=== PATIENT | female | born 1950 | race Caucasian/White ===

== ENCOUNTER → 2016-07-09 | Outpatient (CLI) | payer MEDICARE, OTHER ==
--- NOTE | 2016-07-10 09:44 | MM ---
Reason for exam: screening (asymptomatic). Last mammogram was performed 1 year ago. History: Patient is postmenopausal and is nulliparous. Family history of breast cancer in mother at age 38. Benign left mammotome panel of the left breast, July 09, 2011. Reductions of both breasts, 1986. Took estrogen for 10 years 1 month. Physical Findings: A clinical breast exam by your physician is recommended on an annual basis and results should be correlated with mammographic findings. MG Screening Mammo w CAD Bilateral CC and MLO view(s) were taken. Prior study comparison: July 06, 2015, bilateral MG screening mammo w CAD. June 20, 2014, bilateral MG screening mammo w CAD. There are scattered fibroglandular densities. Previous mammotome biopsy in the left breast. Focal asymmetry in the right breast is stable since 2009. No significant changes when compared with prior studies. ASSESSMENT: Benign, BI-RAD 2 RECOMMENDATION: Routine screening mammogram of both breasts in 1 year.
== END | disposition home or self-care (01) ==
LOC: RADMAMWWP 10:31
PROVIDERS: ATTEND Family Medicine
DX: Z12.31 Encounter for screening mammogram for malignant neoplasm of breast (principal)

== ENCOUNTER → 2016-07-09 | Outpatient (CLI) | payer MEDICARE, OTHER | END | disposition home or self-care (01) | LOC: LABWHC1 10:22 | PROVIDERS: ATTEND Internal Medicine Endocrinology, Diabetes & Metabolism | DX: E03.9 Hypothyroidism, unspecified (principal); E55.9 Vitamin D deficiency, unspecified | CPT/HCPCS: 36415; 84439; 84443 ==

== ENCOUNTER → 2018-10-28 | Outpatient (CLI) | payer MEDICARE ==
--- NOTE | 2018-10-28 10:50 | USB ---
Reason for exam: additional evaluation requested from prior study. History: Patient is postmenopausal and is nulliparous. Family history of breast cancer in mother at age 38. Benign left mammotome panel of the left breast, July 09, 2011. Reductions of both breasts, 1986. Took estrogen for 10 years 1 month. Physical Findings: Nurse did not find any significant physical abnormalities on exam. US Breast Limited RT Prior study comparison: August 18, 2018, mammogram, performed at [facility]. Right limited breast ultrasound including focal area of concern, retroareolar and axilla demonstrates a 0.7 x 0.8 x 0.5cm hypoechoic lesion at 1 o'clock. This corresponds to the mammographic mass however this appears nearly identical to multiple exams dating back to 2006. In a patient with prior reduction this is most compatible with fat necrosis. These results were verbally communicated with the patient and result sheet given to the patient on 10/28/18. ASSESSMENT: Benign, BI-RAD 2 RECOMMENDATION: Routine screening mammogram of both breasts in 1 year.
== END ==
LOC: RADMAMWWP 09:28
PROVIDERS: ATTEND Physician Assistant
DX: R92.2 Inconclusive mammogram (principal)

== ENCOUNTER → 2019-05-07 | Day surgery (SDC) | payer MEDICARE, OTHER ==
[2019-05-05 17:02] VITALS: BMI 28.3
[~2019-05-07] MED LIST: LACTATED RINGERS 1,000 ML IV SCH; LIDOCAINE 1% 20 ML VIAL (10MG/ML) FOR IV START INTRADERMA PRN; LIDOCAINE 1% INJ 10MG/ML (20 ML MDV) ONE; MIDAZOLAM 2 MG/2 ML VIAL IV ONE; ONDANSETRON 4 MG/2 ML VIAL IVP ONE; PROPOFOL 10 MG/ML 20 ML VIAL IV ONE
[2019-05-07 11:41] VITALS: RESP 16; TEMP 96.9
[2019-05-07 11:53] LABS: Glucose,Whole Blood 87 mg/dL (75-99)
--- NOTE | 2019-05-07 13:10 | P.PCN ---
Date of Procedure: 05/07/19 Procedure(s) Performed: BRIEF HISTORY: Patient is a 68-year-old pleasant white female scheduled for an elective colonoscopy as a part of screening for colorectal neoplasia. Her last colonoscopy was 10 years ago. PROCEDURE PERFORMED: Colonoscopy. PREOPERATIVE DIAGNOSIS: Screening for colon cancer. IV sedation per Anesthesia. PROCEDURE: After informed consent was obtained, the patient, was brought into the endoscopy unit. IV sedation was administered by Anesthesia under continuous monitoring. Digital rectal examination was normal. Initially the Olympus CF-160 flexible video colonoscope was then inserted in the rectum, gradually advanced into the cecum without any difficulty. Careful examination was performed as the scope was gradually being withdrawn. Ileocecal valve and the appendiceal orifice were visualized and appeared normal. Prep was excellent. Mucosa of the cecum, ascending colon, transverse colon, descending colon, sigmoid colon, and rectum appeared normal. Retroflexion was performed in the rectum and no lesions were seen. The patient tolerated the procedure well. IMPRESSION: Normal-appearing colon from rectum to cecum with no evidence of colorectal neoplasia. RECOMMENDATIONS: Findings of this examination were discussed with the patient as well as a family. She was advised to have a repeat screening colonoscopy in 10 years
[2019-05-07 13:29] VITALS: BP 143/86; PULSE 67
== END ==
LOC: ORWHC2ENDO 10:47
PROVIDERS: ATTEND Internal Medicine Gastroenterology
DX: Z12.11 Encounter for screening for malignant neoplasm of colon (principal); E07.0 Hypersecretion of calcitonin; M19.90 Unspecified osteoarthritis, unspecified site; F41.9 Anxiety disorder, unspecified; F32.9 Major depressive disorder, single episode, unspecified; Z90.710 Acquired absence of both cervix and uterus; Z79.890 Hormone replacement therapy; Z79.899 Other long term (current) drug therapy
CPT/HCPCS: J2250; J2405; J2001; J2704; G0121

== ENCOUNTER → 2019-12-29 | Outpatient (CLI) | payer OTHER ==
--- NOTE | 2019-12-30 09:19 | MM ---
Reason for exam: screening (asymptomatic). Last mammogram was performed 1 year and 4 months ago. History: Patient is postmenopausal and is nulliparous. Family history of breast cancer in mother at age 38. Benign left mammotome panel of the left breast, July 09, 2011. Reductions of both breasts, 1986. Took estrogen for 10 years 1 month. Physical Findings: A clinical breast exam by your physician is recommended on an annual basis and results should be correlated with mammographic findings. MG Screening Mammo w CAD Bilateral CC and MLO view(s) were taken. Prior study comparison: August 18, 2018, mammogram, performed at [facility]. July 17, 2017, bilateral MG screening mammo w CAD. July 09, 2016, bilateral MG screening mammo w CAD. There are scattered fibroglandular densities. No significant changes when compared with prior studies. ASSESSMENT: Benign, BI-RAD 2 RECOMMENDATION: Routine screening mammogram of both breasts in 1 year.
== END | disposition home or self-care (01) ==
LOC: RADMAMWWP 10:55
DX: Z12.31 Encounter for screening mammogram for malignant neoplasm of breast (principal)
CPT/HCPCS: 77067

== ENCOUNTER → 2021-01-25 | Outpatient (CLI) | payer OTHER ==
--- NOTE | 2021-01-29 10:03 | MM ---
Reason for exam: screening (asymptomatic). Last mammogram was performed 1 year and 1 month ago. History: Patient is postmenopausal and is nulliparous. Family history of breast cancer in mother at age 38. Benign left mammotome panel of the left breast, July 09, 2011. Reductions of both breasts, 1986. Took estrogen for 10 years 1 month. Physical Findings: A clinical breast exam by your physician is recommended on an annual basis and results should be correlated with mammographic findings. MG Screening Mammo w CAD Bilateral CC and MLO view(s) were taken. Prior study comparison: December 29, 2019, bilateral MG screening mammo w CAD. August 18, 2018, mammogram, performed at [facility]. There are scattered fibroglandular densities. There is chronic nodularity in the left breast. Stable post surgical changes right 12 o'clock middle position. ASSESSMENT: Benign, BI-RAD 2 RECOMMENDATION: Routine screening mammogram of both breasts in 1 year.
== END | disposition home or self-care (01) ==
LOC: RADMAMWWP 09:36
DX: Z12.31 Encounter for screening mammogram for malignant neoplasm of breast (principal); Z80.3 Family history of malignant neoplasm of breast; Z78.0 Asymptomatic menopausal state
CPT/HCPCS: 77067

== ENCOUNTER 2022-05-02 10:31 | Emergency (ER) | payer OTHER, BC, MEDICARE ==
[2022-05-02 11:12] VITALS: BP 147/94; PULSE 90; RESP 16; TEMP 98.1
[2022-05-02] MEDS ORDERED: LORazepam 1 MG TAB PO STA (11:28)
--- NOTE | 2022-05-02 11:33 | ED ---
Anxiety HPI - General Chief Complaint: Anxiety Stated Complaint: Withdrawl, anxiety Time Seen by Provider: 05/02/22 11:26 Source: patient, RN notes reviewed Mode of arrival: ambulatory Limitations: no limitations - History of Present Illness Initial Comments: This is a 71-year-old female who presents to the emergency department for anxiety. Her psychiatrist, Dr. Johnson, recently, and she has been out of her Ativan for 2 days. She is currently going through withdrawals. She is waiting to see a new psychiatrist, however she does not have an appointment yet. She spoke with the new psychiatrist on the phone this morning, who instructed her to come to the emergency department for a refill. States that as soon as the psychiatrist gets paperwork from the emergency department, she'll be able to see the patient in her office. She is shaking and tearful in the examination room. Denies any fevers, chills, sore throat, cough, dyspnea, chest pain, palpitations, abdominal pain, nausea, vomiting, diarrhea, back pain, or headaches. MD Complaint: anxiety Onset/Timin -: days(s) Previous History of Same: Yes - Related Data Home Medications: Home Medications Medication Instructions Recorded Confirmed DULoxetine HCL [Cymbalta] 30 mg PO DAILY 09/06/14 05/05/19 LORazepam [Ativan] 1 mg PO BID 09/06/14 05/05/19 QUEtiapine [SEROquel] 100 mg PO HS 09/06/14 05/05/19 lamoTRIgine 150 mg PO BID 09/06/14 05/05/19 Cholecalciferol (Vitamin D3) 2,000 unit PO DAILY 05/05/19 05/05/19 [Vitamin D3] Levothyroxine Sodium [Synthroid] 75 mcg PO DAILY 05/05/19 05/05/19 Previous Rx's Medication Instructions Recorded LORazepam [Ativan] 1 mg PO BID 3 Days #6 tab 05/02/22 Allergies/Adverse Reactions: Allergies Allergy/AdvReac Type Severity Reaction Status Date / Time No Known Allergies Allergy Verified 05/02/22 11:06 Review of Systems ROS Statement: Those systems with pertinent positive or pertinent negative responses have been documented in the HPI. ROS Other: All systems not noted in ROS Statement are negative. Past Medical History Past Medical History: Osteoarthritis (OA), Thyroid Disorder History of Any Multi-Drug Resistant Organisms: None Reported Past Surgical History: Hysterectomy Additional Past Surgical History / Comment(s): breast reduction, throidectomy Past Anesthesia/Blood Transfusion Reactions: No Reported Reaction Past Psychological History: Anxiety, Depression Past Alcohol Use History: None Reported Past Drug Use History: None Reported - Past Family History Mother Family Medical History: Cancer General Exam Limitations: no limitations General appearance: alert, anxious, in distress Head exam: Present: atraumatic, normocephalic, normal inspection Respiratory exam: Present: normal lung sounds bilaterally. Absent: respiratory distress, wheezes, rales, rhonchi, stridor Cardiovascular Exam: Present: regular rate, normal rhythm, normal heart sounds. Absent: systolic murmur, diastolic murmur, rubs, gallop, clicks Neurological exam: Present: alert, oriented X3, CN II-XII intact Psychiatric exam: Present: anxious Skin exam: Present: warm, dry, intact, normal color. Absent: rash Course Vital Signs 05/02/22 11:09 Temperature 98.1 F Pulse Rate 90 Respiratory 16 Rate Blood Pressure 147/94 O2 Sat by Pulse 96 Oximetry Medical Decision Making - Medical Decision Making This is a 71-year-old female who presents to the emergency department for anxiety. She was given a dose of ativan in the emergency department and a 3 day refill was sent to her pharmacy. She was instructed to make an appointment with her new psychiatrist as soon as possible to avoid needing to come to the emergency department for refills. Return precautions reviewed in depth, the patient is instructed to return to the emergency department with any new, worsening, or concerning symptoms. Patient verbalized understanding. This case was discussed in detail with the attending ED physician. Presentation, findings, and treatment plan discussed in detail as well. Disposition Clinical Impression: Anxiety, Benzodiazepine withdrawal Disposition: HOME SELF-CARE Instructions (If sedation given, give patient instructions): Generalized Anxiety Disorder (ED) Additional Instructions: Return to the emergency department with any new, worsening, or concerning sympt oms. You were given an Ativan here and a 3 day prescription was sent to your pharmacy. Make an appointment with your new psychiatrist and follow up as soon as possible. Prescriptions: LORazepam [Ativan] 1 mg PO BID 3 Days #6 tab Is patient prescribed a controlled substance at d/c from ED?: Yes When asked, does pt state using other controlled substances?: No If prescribed controlled substance>3 days was MAPS reviewed?: Prescribed <3 Days Referrals: [facility],Clinic [Primary Care Provider] - 1-2 days
== END 2022-05-02 11:55 | disposition home or self-care (01) ==
LOC: EC 10:31
DX: F41.9 Anxiety disorder, unspecified (principal); F13.239 Sedative, hypnotic or anxiolytic dependence with withdrawal, unspecified; F32.A Depression, unspecified; M19.90 Unspecified osteoarthritis, unspecified site; E07.9 Disorder of thyroid, unspecified
CPT/HCPCS: 99283

== ENCOUNTER 2022-05-13 11:23 | Emergency (ER) | payer OTHER, BC, MEDICARE ==
[2022-05-13 12:03] VITALS: TEMP 97.8
--- NOTE | 2022-05-13 13:40 | ED ---
General Adult HPI - General Chief complaint: Recheck/Abnormal Lab/Rx Stated complaint: medication withdrawal Time Seen by Provider: 05/13/22 13:13 Source: patient, RN notes reviewed Mode of arrival: ambulatory Limitations: no limitations - History of Present Illness Initial comments: This a 71-year-old female presents emergency department for medication refill. Patient states that her psychiatrist . Patient states she was recently here for 100 refill in which she states that she has been off for at least 9 days now. Patient states she ran out of her Seroquel and states that she is very anxious and not tolerating symptoms. Patient denies any suicidal or homicidal ideation. Patient fell complaint she has an appointment tomorrow with psychiatrist. - Related Data Home Medications Medication Instructions Recorded Confirmed DULoxetine HCL [Cymbalta] 30 mg PO DAILY 09/06/14 05/05/19 LORazepam [Ativan] 1 mg PO BID 09/06/14 05/05/19 lamoTRIgine 150 mg PO BID 09/06/14 05/05/19 Cholecalciferol (Vitamin D3) 2,000 unit PO DAILY 05/05/19 05/05/19 [Vitamin D3] Levothyroxine Sodium [Synthroid] 75 mcg PO DAILY 05/05/19 05/05/19 Previous Rx's Medication Instructions Recorded LORazepam [Ativan] 1 mg PO BID 3 Days #6 tab 05/02/22 QUEtiapine [SEROquel] 100 mg PO HS #14 tablet 05/13/22 Allergies Allergy/AdvReac Type Severity Reaction Status Date / Time No Known Allergies Allergy Verified 05/02/22 11:06 Review of Systems ROS Statement: Those systems with pertinent positive or pertinent negative responses have been documented in the HPI. ROS Other: All systems not noted in ROS Statement are negative. Past Medical History Past Medical History: Osteoarthritis (OA), Thyroid Disorder History of Any Multi-Drug Resistant Organisms: None Reported Past Surgical History: Hysterectomy Additional Past Surgical History / Comment(s): breast reduction, throidectomy Past Anesthesia/Blood Transfusion Reactions: No Reported Reaction Past Psychological History: Anxiety, Bipolar, Depression Past Alcohol Use History: None Reported Past Drug Use History: None Reported - Past Family History Mother Family Medical History: Cancer General Exam Limitations: no limitations General appearance: alert, in no apparent distress Head exam: Present: atraumatic, normocephalic, normal inspection Eye exam: Present: normal appearance, PERRL, EOMI. Absent: scleral icterus, conjunctival injection, periorbital swelling ENT exam: Present: normal exam, normal oropharynx, mucous membranes moist Neck exam: Present: normal inspection, full ROM. Absent: tenderness, meningismus, lymphadenopathy Respiratory exam: Present: normal lung sounds bilaterally. Absent: respiratory distress, wheezes, rales, rhonchi, stridor Cardiovascular Exam: Present: regular rate, normal rhythm, normal heart sounds. Absent: systolic murmur, diastolic murmur, rubs, gallop, clicks GI/Abdominal exam: Present: soft, normal bowel sounds. Absent: distended, tenderness, guarding, rebound, rigid Neurological exam: Present: alert Skin exam: Present: warm, dry, intact, normal color. Absent: rash Course Vital Signs 05/13/22 05/13/22 11:58 14:19 Temperature 97.8 F Pulse Rate 86 111 H Respiratory 16 22 Rate Blood Pressure 187/94 178/90 O2 Sat by Pulse 95 100 Oximetry Medical Decision Making - Medical Decision Making Patient was given medication refill, patient has appointment with psychiatrist tomorrow. Disposition Clinical Impression: Anxiety, Encounter for medication refill Disposition: HOME SELF-CARE Condition: Stable Additional Instructions: Please return to the Emergency Department if symptoms worsen or any other concerns. Prescriptions: QUEtiapine [SEROquel] 100 mg PO HS #14 tablet Is patient prescribed a controlled substance at d/c from ED?: No Referrals: [facility],Clinic [Primary Care Provider] - 1-2 days Time of Disposition: 13:20
[2022-05-13 14:20] VITALS: BP 178/90; PULSE 111; RESP 22
== END 2022-05-13 14:20 | disposition home or self-care (01) ==
LOC: EC 11:23
DX: Z76.0 Encounter for issue of repeat prescription (principal); F31.9 Bipolar disorder, unspecified; F41.9 Anxiety disorder, unspecified; E07.9 Disorder of thyroid, unspecified; M19.90 Unspecified osteoarthritis, unspecified site; Z79.890 Hormone replacement therapy; Z79.899 Other long term (current) drug therapy
CPT/HCPCS: 99283

== ENCOUNTER 2023-07-03 08:00 | Emergency (ER) | payer MEDICARE ==
[2023-07-03] MEDS ORDERED: LIDOCAINE 4% PATCH TOPICAL STA (08:20)
[2023-07-03] MEDS ORDERED: IBUPROFEN 600 MG TAB PO STA (08:20)
--- NOTE | 2023-07-03 08:30 | ED ---
General Adult HPI - General Chief complaint: Fall Stated complaint: Fall Time Seen by Provider: 07/03/23 08:09 Source: patient, RN notes reviewed, old records reviewed Mode of arrival: ambulatory Limitations: no limitations - History of Present Illness Initial comments: Patient is a 72-year-old female with past medical history remarkable for sciatica who presents emergency Department complaining of a fall. Fall occurred 2 days ago from 1 step above ground-level. States she is getting cans of the pantry off a stepladder. Fell backwards and landed on her bottom. Since that time has been having pain in her buttocks. No midline pain, seems to be more localized over the left hip. Has no other acute complaints at this time. Denies any weakness, numbness. Has been ambulatory. Presents for further evaluation at this time. Patient does take gabapentin at home.Is not on blood thinners. Did not hit her head. Did not lose consciousness. - Related Data Home Medications Medication Instructions Recorded Confirmed DULoxetine HCL [Cymbalta] 30 mg PO DAILY 09/06/14 05/05/19 LORazepam [Ativan] 1 mg PO BID 09/06/14 05/05/19 lamoTRIgine 150 mg PO BID 09/06/14 05/05/19 Cholecalciferol (Vitamin D3) 2,000 unit PO DAILY 05/05/19 05/05/19 [Vitamin D3] Levothyroxine Sodium [Synthroid] 75 mcg PO DAILY 05/05/19 05/05/19 Previous Rx's Medication Instructions Recorded LORazepam [Ativan] 1 mg PO BID 3 Days #6 tab 05/02/22 QUEtiapine [SEROquel] 100 mg PO HS #14 tablet 05/13/22 Lidocaine 5% Patch [Lidoderm 5% 1 patch TOPICAL DAILY PRN 14 Days 07/03/23 Patch] #14 patch Allergies Allergy/AdvReac Type Severity Reaction Status Date / Time No Known Allergies Allergy Verified 07/03/23 08:10 Review of Systems ROS Statement: Those systems with pertinent positive or pertinent negative responses have been documented in the HPI. Review of Systems: CONST: Denies fever EYES: Denies blurry vision ENT: Denies nasal congestion C/V: Denies Chest pain RESP: Denies shortness of breath GI: Denies abdominal pain : Denies dysuria SKIN: Denies rash. MSK: Endorses left buttock pain NEURO: Denies headache ROS Other: All systems not noted in ROS Statement are negative. Past Medical History Past Medical History: Osteoarthritis (OA), Thyroid Disorder History of Any Multi-Drug Resistant Organisms: None Reported Past Surgical History: Hysterectomy Additional Past Surgical History / Comment(s): breast reduction, throidectomy Past Anesthesia/Blood Transfusion Reactions: No Reported Reaction Past Psychological History: Anxiety, Bipolar, Depression Smoking Status: Never smoker Past Alcohol Use History: None Reported Past Drug Use History: None Reported - Past Family History Mother Family Medical History: Cancer General Exam - General Exam Comments Initial Comments: General: Appears in no acute distress. HEAD: Normal with no signs of head trauma. EYES: EOMI. ENT: Hearing grossly intact. RESPIRATORY: No respiratory distress. C/V: Regular rate and rhythm. ABD: Abdomen is nondistended. EXT: Pelvis is stable.. Tenderness to palpation in the left lower paraspinal muscles. No significant pain. Able to ambulate without difficulty. Neurovascular intact throughout. SKIN: No rashes or lesions observed on exposed skin. NEURO: Alert and oriented. Limitations: no limitations Course Vital Signs 07/03/23 08:07 Temperature 98 F Pulse Rate 92 Respiratory 18 Rate Blood Pressure 156/98 O2 Sat by Pulse 98 Oximetry Medical Decision Making - Medical Decision Making Was pt. sent in by a medical professional or institution (ERVIN Gil, BRUSHER TENDER, urgent care, hospital, or halfway...) When possible be specific @ -No Did you speak to anyone other than the patient for history (EMS, parent, family, police, friend...)? What history was obtained from this source @ -No Did you review nursing and triage notes (agree or disagree)? Why? @ -I reviewed and agree with nursing and triage notes Were old charts reviewed (outside hosp., previous admission, EMS record, old EKG, old radiological studies, urgent care reports/EKG's, halfway records)? Report findings @ -No old charts were reviewed Differential Diagnosis (chest pain, altered mental status, abdominal pain women, abdominal pain men, vaginal bleeding, weakness, fever, dyspnea, syncope, headache, dizziness, GI bleed, back pain, seizure, CVA, palpatations, mental health, musculoskeletal)? @ -Differential Musculoskeletal Muscular strain, contusion, ligament sprain, fracture, arthritis, septic arthritis, bursitis, cellulitis, muscle spasm, nerve compression, DVT, arterial occlusion, herpes zoster, electrolyte abnormality, tumor.... This is not meant to be in all inclusive list EKG interpreted by me (3pts min.). @ -None done X-rays interpreted by me (1pt min.). @ -Pelvis x-ray reveals no obvious acute injury. CT interpreted by me (1pt min.). @ -None done U/S interpreted by me (1pt. min.). @ -None done What testing was considered but not performed or refused? (CT, X-rays, U/S, labs)? Why? @ -None What meds were considered but not given or refused? Why? @ -None Did you discuss the management of the patient with other professionals (professionals i.e. , PA, BRUSHER TENDER, lab, RT, psych nurse, web content & social media manager, wood barrel reconditioner, teacher, safety and security officer, wrapper caser)? Give summary @ -No Was smoking cessation discussed for >3mins.? @ -No Was critical care preformed (if so, how long)? @ -No Were there social determinants of health that impacted care today? How? (Homelessness, low income, unemployed, alcoholism, drug addiction, transportation, low edu. Level, literacy, decrease access to med. care, shelter, rehab)? @ -No Was there de-escalation of care discussed even if they declined (Discuss DNR or withdrawal of care, Hospice)? DNR status @ -No What co-morbidities impacted this encounter? (DM, HTN, Smoking, COPD, CAD, Cancer, CVA, ARF, Chemo, Hep., AIDS, mental health diagnosis, sleep apnea, morbid obesity)? @ -None Was patient admitted / discharged? Hospital course, mention meds given and route, prescriptions, significant lab abnormalities, going to OR and other pertinent info. @ -Based on the patient's presentation and physical exam, presents complaining of foot appears to be muscle strains and sprains. Had a mechanical fall 2 days ago. No concern for head injury at this time. We will obtain pelvic x-ray. Patient will receive Motrin as well as lidocaine patch. Patient agreement with this plan. Vital signs within except for limits. Neurovascular intact throughout. Exam unremarkable. She is ambulatory without issue. X-ray negative for any obvious traumatic injury. After the patient. Diagnosis is likely a muscle strain. She'll be discharged home at this time. She continues lidocaine patches at home as well as [id number] medications for analgesia. She was in agreement this plan. I will provide the patient with a prescription for lidocaine patch. I instructed the patient to follow up with their PCP in the next 1-3 days. I explained that the patient should return to the emergency department if they experience any worsening symptoms. Strict return precautions were discussed with the patient. The patient expressed understanding of these instructions. I answered all questions that the patient had. The patient was discharged home in good condition with their prescriptions and follow up information. Undiagnosed new problem with uncertain prognosis? @ -No Drug Therapy requiring intensive monitoring for toxicity (Heparin, Nitro, Insulin, Cardizem)? @ -No Were any procedures done? @ -No Diagnosis/symptom? @ -Fall, muscle strain Acute, or Chronic, or Acute on Chronic? @ -Acute Uncomplicated (without systemic symptoms) or Complicated (systemic symptoms)? @ -Uncomplicated Side effects of treatment? @ -No Exacerbation, Progression, or Severe Exacerbation? @ -No Poses a threat to life or bodily function? How? (Chest pain, USA, MT, pneumonia, PE, COPD, DKA, ARF, appy, cholecystitis, CVA, Diverticulitis, Homicidal, Suicidal, threat to staff... and all critical care pts) @ -No Disposition Clinical Impression: Fall, Muscle strain Disposition: HOME SELF-CARE Condition: Good Instructions (If sedation given, give patient instructions): Fall Prevention for Older Adults (ED), Muscle Strain (ED) Prescriptions: Lidocaine 5% Patch [Lidoderm 5% Patch] 1 patch TOPICAL DAILY PRN 14 Days #14 patch PRN Reason: Pain Is patient prescribed a controlled substance at d/c from ED?: No Referrals: [facility],Clinic [Primary Care Provider] - 1-2 days Time of Disposition: 09:22
[2023-07-03 08:54] VITALS: RESP 18
--- NOTE | 2023-07-03 09:09 | XR ---
EXAMINATION TYPE: XR pelvis AP view DATE OF EXAM: 07/03/2023 COMPARISON: NONE HISTORY: Pain The osseous structures are intact and the joint spaces are preserved. No acute fracture is seen. Vi sualized bowel gas pattern is nonspecific. IMPRESSION: 1. No acute fracture.
[2023-07-03 10:06] VITALS: BP 140/89; PULSE 87; TEMP 98.1
== END 2023-07-03 09:45 | disposition home or self-care (01) ==
LOC: EC 08:00
DX: F31.9 Bipolar disorder, unspecified (principal); S39.012A Strain of muscle, fascia and tendon of lower back, initial encounter; F41.9 Anxiety disorder, unspecified; E07.9 Disorder of thyroid, unspecified; Z79.890 Hormone replacement therapy; Z79.899 Other long term (current) drug therapy; W11.XXXA Fall on and from ladder, initial encounter
CPT/HCPCS: 72170; 99283

== ENCOUNTER 2024-02-09 06:12 | Emergency (ER) | payer MEDICARE ==
[2024-02-09] MEDS: SODIUM CHLORIDE 0.9% 1,000 ML IV STA (07:02)
[2024-02-09] MEDS: ONDANSETRON 4 MG/2 ML VIAL IVP STA (07:02)
[2024-02-09 07:35] LABS: Basophils % (A) 1 %; Eosinophils # (A) 0.2 k/uL (0-0.7); Eosinophils % (A) 3 %; HCT 44.9 % (34.0-46.0); HGB 14.6 gm/dL (11.4-16.0); Lymphocytes # (A) 1.5 k/uL (1.0-4.8); Lymphocytes % (A) 26 %; MCHC 32.5 g/dL (31.0-37.0); MCV 89.2 fL (80.0-100.0); Mean Platelet Volume 6.9; Monocytes # (A) 0.4 k/uL (0-1.0); Monocytes % (A) 7 %; Neutrophils # (A) 3.6 k/uL (1.3-7.7); Neutrophils % (A) 61 %; Platelet Count 291 k/uL (150-450); RBC 5.03 m/uL (3.80-5.40); RDW 13.8 % (11.5-15.5); WBC 5.9 k/uL (3.8-10.6)
--- NOTE | 2024-02-09 07:42 | ED ---
Nausea/Vomiting/Diarrhea HPI - General Chief complaint: Nausea/Vomiting/Diarrhea Stated complaint: Sweats,chills Time Seen by Provider: 02/09/24 06:48 Source: patient, RN notes reviewed Mode of arrival: ambulatory Limitations: no limitations - History of Present Illness Initial comments: 73-year-old female presents emergency department complaint of abdominal pain, nausea vomiting. Patient states she has not felt for the last 2 weeks. Patient states that she feels like her gut is riding. Patient states she is mild dysuria and urinary frequency no melanotic stools. Denies any known fever but states she has had chills no chest pain no shortness of breath - Related Data Home Medications Medication Instructions Recorded Confirmed DULoxetine HCL [Cymbalta] 30 mg PO DAILY 09/06/14 05/05/19 LORazepam [Ativan] 1 mg PO BID 09/06/14 05/05/19 lamoTRIgine 150 mg PO BID 09/06/14 05/05/19 Cholecalciferol (Vitamin D3) 2,000 unit PO DAILY 05/05/19 05/05/19 [Vitamin D3] Levothyroxine Sodium [Synthroid] 75 mcg PO DAILY 05/05/19 05/05/19 Previous Rx's Medication Instructions Recorded LORazepam [Ativan] 1 mg PO BID 3 Days #6 tab 05/02/22 QUEtiapine [SEROquel] 100 mg PO HS #14 tablet 05/13/22 Lidocaine 5% Patch [Lidoderm 5% 1 patch TOPICAL DAILY PRN 14 Days 07/03/23 Patch] #14 patch Ondansetron Odt [Zofran Odt] 4 mg PO Q8HR PRN #10 tab 02/09/24 Allergies Allergy/AdvReac Type Severity Reaction Status Date / Time No Known Allergies Allergy Verified 02/09/24 06:15 Review of Systems ROS Statement: Those systems with pertinent positive or pertinent negative responses have been documented in the HPI. ROS Other: All systems not noted in ROS Statement are negative. Past Medical History Past Medical History: Osteoarthritis (OA), Thyroid Disorder History of Any Multi-Drug Resistant Organisms: None Reported Past Surgical History: Hysterectomy Additional Past Surgical History / Comment(s): breast reduction, throidectomy Past Anesthesia/Blood Transfusion Reactions: No Reported Reaction Past Psychological History: Anxiety, Bipolar, Depression Smoking Status: Never smoker Past Alcohol Use History: None Reported Past Drug Use History: None Reported - Past Family History Mother Family Medical History: Cancer General Exam Limitations: no limitations General appearance: alert, in no apparent distress Head exam: Present: atraumatic, normocephalic, normal inspection ENT exam: Present: normal exam, mucous membranes moist Neck exam: Present: normal inspection, full ROM. Absent: tenderness, meningismus, lymphadenopathy Respiratory exam: Present: normal lung sounds bilaterally. Absent: respiratory distress, wheezes, rales, rhonchi, stridor Cardiovascular Exam: Present: regular rate, normal rhythm, normal heart sounds. Absent: systolic murmur, diastolic murmur, rubs, gallop, clicks GI/Abdominal exam: Present: soft, tenderness, normal bowel sounds. Absent: distended, guarding, rebound, rigid Course Vital Signs 02/09/24 02/09/24 06:13 07:52 Temperature 97.6 F 98.0 F Pulse Rate 88 74 Respiratory 18 18 Rate Blood Pressure 144/83 159/99 O2 Sat by Pulse 96 96 Oximetry Medical Decision Making - Medical Decision Making Was pt. sent in by a medical professional or institution (, PA, CHENILLE MACHINE OPERATOR, urgent care, hospital, or [facility]...) When possible be specific @ -No Did you speak to anyone other than the patient for history (EMS, parent, family, police, friend...)? What history was obtained from this source @ -No Did you review nursing and triage notes (agree or disagree)? Why? @ -I reviewed and agree with nursing and triage notes Were old charts reviewed (outside hosp., previous admission, EMS record, old E KG, old radiological studies, urgent care reports/EKG's, [facility] records)? Report findings @ -No old charts were reviewed Differential Diagnosis (chest pain, altered mental status, abdominal pain women, abdominal pain men, vaginal bleeding, weakness, fever, dyspnea, syncope, headache, dizziness, GI bleed, back pain, seizure, CVA, palpatations, mental health, musculoskeletal)? @ -Differential Abdominal Pain Women: Appendicitis, Cholecystitis, diverticulosis, ischemic bowel, pancreatitis, h epatitis, UTI, gastroenteritis, AAA, incarcerated hernia, bowel obstruction, constipation, inflammatory bowel, hepatitis, peptic ulcer disease, splenic infarction, perforated viscus, vulvitis, ovarian torsion, PID, kidney stone, placenta abruption, this is not meant to be an all-inclusive list EKG interpreted by me (3pts min.). @ -None X-rays interpreted by me (1pt min.). @ -None done CT interpreted by me (1pt min.). @ -CT abdomen pelvis showed no acute intra-abdominal process no perforation U/S interpreted by me (1pt. min.). @ -None done What testing was considered but not performed or refused? (CT, X-rays, U/S, labs)? Why? @ -None What meds were considered but not given or refused? Why? @ -None Did you discuss the management of the patient with other professionals (professionals i.e. DrKevin, PA, CHENILLE MACHINE OPERATOR, lab, RT, psych nurse, social media analyst, veterinary science teacher, teacher, chief resource officer, sample case porter)? Give summary @ -No Was smoking cessation discussed for >3mins.? @ -No Was critical care preformed (if so, how long)? @ -No Were there social determinants of health that impacted care today? How? (Homelessness, low income, unemployed, alcoholism, drug addiction, transportation, low edu. Level, literacy, decrease access to med. care, correction, rehab)? @ -No Was there de-escalation of care discussed even if they declined (Discuss DNR or withdrawal of care, Hospice)? DNR status @ -No What co-morbidities impacted this encounter? (DM, HTN, Smoking, COPD, CAD, Cancer, CVA, ARF, Chemo, Hep., AIDS, mental health diagnosis, sleep apnea, morbid obesity)? @ -None Was patient admitted / discharged? Hospital course, mention meds given and route, prescriptions, significant lab abnormalities, going to OR and other pertinent info. @ -Discharge patient feels great improved after IV fluids and antiemetics. Patient discharged stable condition updated on CT and laboratory findings Undiagnosed new problem with uncertain prognosis? @ -No Drug Therapy requiring intensive monitoring for toxicity (Heparin, Nitro, In sulin, Cardizem)? @ -No Were any procedures done? @ -No Diagnosis/symptom? @ -Abdominal pain, diarrhea Acute, or Chronic, or Acute on Chronic? @ -Acute Uncomplicated (without systemic symptoms) or Complicated (systemic symptoms)? @ -Uncomplicated Side effects of treatment? @ -No Exacerbation, Progression, or Severe Exacerbation? @ -No Poses a threat to life or bodily function? How? (Chest pain, [place], [place], pneumonia, PE, COPD, DKA, ARF, appy, cholecystitis, CVA, Diverticulitis, Homicidal, Suicidal, threat to staff... and all critical care pts) @ -No - Lab Data Result diagrams: 02/09/24 06:54 02/09/24 06:54 Lab Results 02/09/24 02/09/24 02/09/24 Range/Units 06:54 06:54 06:54 WBC 5.9 (3.8-10.6) k/uL RBC 5.03 (3.80-5.40) m/uL Hgb 14.6 (11.4-16.0) gm/dL Hct 44.9 (34.0-46.0) % MCV 89.2 (80.0-100.0) fL MCH 29.0 (25.0-35.0) pg MCHC 32.5 (31.0-37.0) g/dL RDW 13.8 (11.5-15.5) % Plt Count 291 (150-450) k/uL MPV 6.9 Neutrophils % 61 % Lymphocytes % 26 % Monocytes % 7 % Eosinophils % 3 % Basophils % 1 % Neutrophils # 3.6 (1.3-7.7) k/uL Lymphocytes # 1.5 (1.0-4.8) k/uL Monocytes # 0.4 (0-1.0) k/uL Eosinophils # 0.2 (0-0.7) k/uL Basophils # 0.0 (0-0.2) k/uL Sodium 139 (137-145) mmol/L Potassium 3.3 L (3.5-5.1) mmol/L Chloride 101 (98-107) mmol/L Carbon Dioxide 29 (22-30) mmol/L Anion Gap 9 mmol/L BUN 13 (7-17) mg/dL Creatinine 0.84 (0.52-1.04) mg/dL Est GFR (CKD-EPI)AfAm 79 (>60 ml/min/1.73 sqM) Est GFR (CKD-EPI)NonAf 69 (>60 ml/min/1.73 sqM) Glucose 104 H (74-99) mg/dL Plasma Lactic Acid Tanner 1.2 (0.7-2.0) mmol/L Calcium 9.3 (8.4-10.2) mg/dL Total Bilirubin 0.9 (0.2-1.3) mg/dL AST 31 (14-36) U/L ALT 32 (4-34) U/L Alkaline Phosphatase 44 (38-126) U/L Total Protein 6.7 (6.3-8.2) g/dL Albumin 4.3 (3.5-5.0) g/dL Amylase 44 (30-110) U/L Lipase 95 (23-300) U/L Urine Color Urine Appearance (Clear) Urine pH (5.0-8.0) Ur Specific [place] (1.001-1.035) Urine Protein (Negative) Urine Glucose (UA) (Negative) Urine Ketones (Negative) Urine Blood (Negative) Urine Nitrite (Negative) Urine Bilirubin (Negative) Urine Urobilinogen (<2.0) mg/dL Ur Leukocyte Esterase (Negative) Urine RBC (0-5) /hpf Urine WBC (0-5) /hpf Ur Squamous Epith Cells (0-4) /hpf // Range/Units 06:59 WBC (3.8-10.6) k/uL RBC (3.80-5.40) m/uL Hgb (11.4-16.0) gm/dL Hct (34.0-46.0) % MCV (80.0-100.0) fL MCH (25.0-35.0) pg MCHC (31.0-37.0) g/dL RDW (11.5-15.5) % Plt Count (150-450) k/uL MPV Neutrophils % % Lymphocytes % % Monocytes % % Eosinophils % % Basophils % % Neutrophils # (1.3-7.7) k/uL Lymphocytes # (1.0-4.8) k/uL Monocytes # (0-1.0) k/uL Eosinophils # (0-0.7) k/uL Basophils # (0-0.2) k/uL Sodium (137-145) mmol/L Potassium (3.5-5.1) mmol/L Chloride (98-107) mmol/L Carbon Dioxide (22-30) mmol/L Anion Gap mmol/L BUN (7-17) mg/dL Creatinine (0.52-1.04) mg/dL Est GFR (CKD-EPI)AfAm (>60 ml/min/1.73 sqM) Est GFR (CKD-EPI)NonAf (>60 ml/min/1.73 sqM) Glucose (74-99) mg/dL Plasma Lactic Acid Tanner (0.7-2.0) mmol/L Calcium (8.4-10.2) mg/dL Total Bilirubin (0.2-1.3) mg/dL AST (14-36) U/L ALT (4-34) U/L Alkaline Phosphatase (38-126) U/L Total Protein (6.3-8.2) g/dL Albumin (3.5-5.0) g/dL Amylase (30-110) U/L Lipase (23-300) U/L Urine Color Colorless Urine Appearance Cloudy H (Clear) Urine pH 6.0 (5.0-8.0) Ur Specific [place] 1.005 (1.001-1.035) Urine Protein Negative (Negative) Urine Glucose (UA) Negative (Negative) Urine Ketones Negative (Negative) Urine Blood Negative (Negative) Urine Nitrite Negative (Negative) Urine Bilirubin Negative (Negative) Urine Urobilinogen <2.0 (<2.0) mg/dL Ur Leukocyte Esterase Negative (Negative) Urine RBC 1 (0-5) /hpf Urine WBC 2 (0-5) /hpf Ur Squamous Epith Cells 1 (0-4) /hpf Disposition Clinical Impression: Abdominal pain, Diarrhea Disposition: HOME SELF-CARE Condition: Stable Instructions (If sedation given, give patient instructions): Acute Diarrhea (ED), Abdominal Pain (ED) Additional Instructions: Please return to the Emergency Department if symptoms worsen or any other concerns. Prescriptions: Ondansetron Odt [Zofran Odt] 4 mg PO Q8HR PRN #10 tab PRN Reason: Nausea Is patient prescribed a controlled substance at d/c from ED?: No Referrals: [facility],Clinic [Primary Care Provider] - 1-2 days Time of Disposition: 09:28
[2024-02-09 07:53] VITALS: TEMP 98
[2024-02-09 07:58] LABS: Appearance,Urine Cloudy (Clear); Bilirubin,Urine Negative (Negative); Blood,Urine Negative (Negative); Color,Urine Colorless; Glucose,Urine (UA) Negative (Negative); Ketones,Urine Negative (Negative); Leukocyte Esterase,Urine Negative (Negative); Nitrite,Urine Negative (Negative); Protein,Urine Negative (Negative); RBC,Urine 1 /hpf (0-5); Specific Gravity,Urine 1.005 (1.001-1.035); Squamous Epithelial Cell,Urine 1 /hpf (0-4); Urobilinogen,Urine <2.0 mg/dL (<2.0); WBC,Urine 2 /hpf (0-5)
[2024-02-09 08:09] LABS: ALT 32 U/L (4-34); AST 31 U/L (14-36); African American GFR (CKD) 79 (>60 ml/min/1.73 sqM); Albumin 4.3 g/dL (3.5-5.0); Alkaline Phosphatase 44 U/L (38-126); Amylase 44 U/L (30-110); Anion Gap 9 mmol/L; Blood Urea Nitrogen 13 mg/dL (7-17); Calcium 9.3 mg/dL (8.4-10.2); Carbon Dioxide 29 mmol/L (22-30); Chloride 101 mmol/L (98-107); Glucose 104 mg/dL (74-99); Lipase 95 U/L (23-300); Non-African American GFR(CKD) 69 (>60 ml/min/1.73 sqM); Potassium 3.3 mmol/L (3.5-5.1); Sodium 139 mmol/L (137-145); Total Bilirubin 0.9 mg/dL (0.2-1.3); Total Protein 6.7 g/dL (6.3-8.2)
--- NOTE | 2024-02-09 09:07 | CT ---
EXAMINATION TYPE: CT abdomen pelvis w con CT DLP: 1025.6 mGycm, Automated exposure control for dose reduction was used. DATE OF EXAM: 02/09/2024 9:01 AM COMPARISON: None. CLINICAL INDICATION: Female, 73 years old with history of pain; Abdominal pain, N/V/D, nausea x 2 wee ks. TECHNIQUE: Axial CT abdomen pelvis w con;Sagittal and coronal reformats were created on a separate w orkstation. Contrast used:100 mL of Isovue 300 with IV Contrast, (none if empty) Oral contrast used: without Oral Contrast (none if empty) FINDINGS: LOWER CHEST: Unremarkable ABDOMEN LIVER: Unremarkable GALLBLADDER AND BILE DUCTS: Unremarkable. PANCREAS: Unremarkable. SPLEEN: Unremarkable. ADRENAL GLANDS: Unremarkable. KIDNEYS AND URETERS: No evidence of hydronephrosis or renal calculus. The ureters are unremarkable. PELVIS BLADDER: Unremarkable REPRODUCTIVE: Unremarkable. ABDOMEN & PELVIS STOMACH AND BOWEL: No evidence for wall thickening of the gastric lumen. No evidence of bowel obstruc tion. The appendix is normal. PERITONEUM/RETROPERITONEUM: No evidence of pneumoperitoneum or free fluid. VASCULATURE: No evidence of aortic aneurysm. Tortuous aorta. MUSCULOSKELETAL: No acute osseous abnormalities LYMPH NODES: No gross evidence for lymphadenopathy. SOFT TISSUE/ABDOMINAL WALL: Unremarkable IMPRESSION: 1. No obvious acute abdominal process. Normal appearance of the stomach. Gaseous dilation of colon w ithout evidence of small bowel junction. 2. No evidence for obstructive uropathy or renal calculus. The appendix is normal.
[2024-02-09] MEDS: DIPHENOX-ATROP STARTER PACK 8 TAB BTL PO STA (09:36)
[2024-02-09 09:41] VITALS: BP 162/95; PULSE 78; RESP 16
== END 2024-02-09 09:40 | disposition home or self-care (01) ==
LOC: EC 06:12
DX: R11.2 Nausea with vomiting, unspecified (principal); R19.7 Diarrhea, unspecified
CPT/HCPCS: 36415; 80053; 82150; 83605; 83690; 85025; 81001; 74177; 99284; 96374; 96361; J2405; Q9967

== ENCOUNTER 2024-02-21 11:16 | Emergency (ER) | payer MEDICARE ==
[2024-02-21 11:19] VITALS: BP 184/101; PULSE 86; RESP 20; TEMP 97.5
--- NOTE | 2024-02-21 11:56 | ED ---
General Adult HPI - General Chief complaint: Nausea/Vomiting/Diarrhea Stated complaint: Diarrhea Time Seen by Provider: 02/21/24 11:30 Source: patient, RN notes reviewed Mode of arrival: ambulatory Limitations: no limitations - History of Present Illness Initial comments: 73 [id number] presenting with intermittent abdominal pain localized to left upper quadrant x 1 week, relieved only by having bowel movement. Reports self induced diarrhea with pedialyte to evacuate bowels, stools have been increasingly dark in color, liquid. Denies nausea and vomitting, fever, weight loss. States that she sent stool to [place], and they told her to come to the ER for antibiotics. - Related Data Home Medications Medication Instructions Recorded Confirmed DULoxetine HCL [Cymbalta] 30 mg PO DAILY 09/06/14 05/05/19 LORazepam [Ativan] 1 mg PO BID 09/06/14 05/05/19 lamoTRIgine 150 mg PO BID 09/06/14 05/05/19 Cholecalciferol (Vitamin D3) 2,000 unit PO DAILY 05/05/19 05/05/19 [Vitamin D3] Levothyroxine Sodium [Synthroid] 75 mcg PO DAILY 05/05/19 05/05/19 Previous Rx's Medication Instructions Recorded LORazepam [Ativan] 1 mg PO BID 3 Days #6 tab 05/02/22 QUEtiapine [SEROquel] 100 mg PO HS #14 tablet 05/13/22 Lidocaine 5% Patch [Lidoderm 5% 1 patch TOPICAL DAILY PRN 14 Days 07/03/23 Patch] #14 patch Ondansetron Odt [Zofran Odt] 4 mg PO Q8HR PRN #10 tab 02/09/24 Albendazole [Albenza] 400 mg PO BID #40 tablet 02/21/24 metroNIDAZOLE [Flagyl] 250 mg PO TID #21 tab 02/21/24 Allergies Allergy/AdvReac Type Severity Reaction Status Date / Time No Known Allergies Allergy Verified 02/21/24 11:19 Review of Systems ROS Statement: Those systems with pertinent positive or pertinent negative responses have been documented in the HPI. ROS Other: All systems not noted in ROS Statement are negative. Past Medical History Past Medical History: Osteoarthritis (OA), Thyroid Disorder History of Any Multi-Drug Resistant Organisms: None Reported Past Surgical History: Hysterectomy Additional Past Surgical History / Comment(s): breast reduction, throidectomy Past Anesthesia/Blood Transfusion Reactions: No Reported Reaction Past Psychological History: Anxiety, Bipolar, Depression Smoking Status: Never smoker Past Alcohol Use History: None Reported Past Drug Use History: None Reported - Past Family History Mother Family Medical History: Cancer General Exam Limitations: no limitations General appearance: alert, in no apparent distress Head exam: Present: atraumatic, normocephalic, normal inspection Eye exam: Present: normal appearance, PERRL, EOMI. Absent: scleral icterus, conjunctival injection, periorbital swelling ENT exam: Present: normal exam, mucous membranes moist Neck exam: Present: normal inspection. Absent: tenderness, meningismus, lymphadenopathy Respiratory exam: Present: normal lung sounds bilaterally. Absent: respiratory distress, wheezes, rales, rhonchi, stridor Cardiovascular Exam: Present: regular rate, normal rhythm, normal heart sounds. Absent: systolic murmur, diastolic murmur, rubs, gallop, clicks GI/Abdominal exam: Present: soft, normal bowel sounds. Absent: distended, tenderness, guarding, rebound, rigid Extremities exam: Present: normal inspection, full ROM, normal capillary refill. Absent: tenderness, pedal edema, joint swelling, calf tenderness Back exam: Present: normal inspection Neurological exam: Present: alert, oriented X3, CN II-XII intact Psychiatric exam: Present: normal affect, normal mood Skin exam: Present: warm, dry, intact, normal color. Absent: rash Course Vital Signs 02/21/24 11:18 Temperature 97.5 F L Pulse Rate 86 Respiratory 20 Rate Blood Pressure 184/101 O2 Sat by Pulse 99 Oximetry Medical Decision Making - Medical Decision Making Was pt. sent in by a medical professional or institution (, PA, BARIATRIC COORDINATOR, urgent care, hospital, or jail...) When possible be specific @ -PCP Did you speak to anyone other than the patient for history (EMS, parent, family, police, friend...)? What history was obtained from this source @ -No Did you review nursing and triage notes (agree or disagree)? Why? @ -I reviewed and agree with nursing and triage notes Were old charts reviewed (outside hosp., previous admission, EMS record, old EKG, old radiological studies, urgent care reports/EKG's, jail records)? Report findings @ -Reviewed CT and labs from 02/08 Differential Diagnosis (chest pain, altered mental status, abdominal pain women, abdominal pain men, vaginal bleeding, weakness, fever, dyspnea, syncope, headache, dizziness, GI bleed, back pain, seizure, CVA, palpatations, mental health, musculoskeletal)? @ -Differential Abdominal Pain Women: Appendicitis, Cholecystitis, diverticulosis, ischemic bowel, pancreatitis, hepatitis, UTI, gastroenteritis, AAA, incarcerated hernia, bowel obstruction, c onstipation, inflammatory bowel, hepatitis, peptic ulcer disease, splenic infarction, perforated viscus, vulvitis, ovarian torsion, PID, kidney stone, placenta abruption, this is not meant to be an all-inclusive list EKG interpreted by me (3pts min.). @ -None X-rays interpreted by me (1pt min.). @ -None done CT interpreted by me (1pt min.). @ -None done U/S interpreted by me (1pt. min.). @ -None done What testing was considered but not performed or refused? (CT, X-rays, U/S, labs)? Why? @ -None What meds were considered but not given or refused? Why? @ -None Did you discuss the management of the patient with other professionals (professionals i.e. , PA, BARIATRIC COORDINATOR, lab, RT, psych nurse, social welfare clerk, medical technologist blood bank, teacher, registration officer, case technician)? Give summary @ -No Was smoking cessation discussed for >3mins.? @ -No Was critical care preformed (if so, how long)? @ -No Were there social determinants of health that impacted care today? How? (Homelessness, low income, unemployed, alcoholism, drug addiction, transportation, low edu. Level, literacy, decrease access to med. care, [facility], rehab)? @ -No Was there de-escalation of care discussed even if they declined (Discuss DNR or withdrawal of care, Hospice)? DNR status @ -No What co-morbidities impacted this encounter? (DM, HTN, Smoking, COPD, CAD, Cancer, CVA, ARF, Chemo, Hep., AIDS, mental health diagnosis, sleep apnea, morbid obesity)? @ -None Was patient admitted / discharged? Hospital course, mention meds given and route, prescriptions, significant lab abnormalities, going to [place] and other pertinent info. @ -Discharge patient laboratory studies unremarkable C. difficile is negative. Patient presenting with no results from outpatient and no way to obtain his records patient is very upset at this time I explained to her that she needs to follow-up with her PCP regarding her stool studies and there is possibility that there is some sort of infection that is not obtainable today. Patient be given medications based on complaint. Patient agrees to follow-up. Undiagnosed new problem with uncertain prognosis? @ -No Drug Therapy requiring intensive monitoring for toxicity (Heparin, Nitro, Insulin, Cardizem)? @ -No Were any procedures done? @ -No Diagnosis/symptom? @ -Diarrhea Acute, or Chronic, or Acute on Chronic? @ -Acute Uncomplicated (without systemic symptoms) or Complicated (systemic symptoms)? @ -uncomplicated Side effects of treatment? @ -No Exacerbation, Progression, or Severe Exacerbation? @ -No Poses a threat to life or bodily function? How? (Chest pain, [place], [place], pneumonia, PE, COPD, DKA, ARF, appy, cholecystitis, CVA, Diverticulitis, Homicidal, Suicidal, threat to staff... and all critical care pts) @ -No - Lab Data Result diagrams: 02/21/24 12:55 02/21/24 12:55 Lab Results 02/21/24 02/21/24 02/21/24 Range/Units 11:54 11:55 12:55 WBC 7.6 (3.8-10.6) k/uL RBC 4.87 (3.80-5.40) m/uL Hgb 14.2 (11.4-16.0) gm/dL Hct 43.6 (34.0-46.0) % MCV 89.7 (80.0-100.0) fL MCH 29.1 (25.0-35.0) pg MCHC 32.5 (31.0-37.0) g/dL RDW 13.5 (11.5-15.5) % Plt Count 312 (150-450) k/uL MPV 6.6 Neutrophils % 66 % Lymphocytes % 22 % Monocytes % 6 % Eosinophils % 3 % Basophils % 1 % Neutrophils # 5.0 (1.3-7.7) k/uL Lymphocytes # 1.7 (1.0-4.8) k/uL Monocytes # 0.5 (0-1.0) k/uL Eosinophils # 0.2 (0-0.7) k/uL Basophils # 0.1 (0-0.2) k/uL Sodium (137-145) mmol/L Potassium (3.5-5.1) mmol/L Chloride (98-107) mmol/L Carbon Dioxide (22-30) mmol/L Anion Gap mmol/L BUN (7-17) mg/dL Creatinine (0.52-1.04) mg/dL Est GFR (CKD-EPI)AfAm (>60 ml/min/1.73 sqM) Est GFR (CKD-EPI)NonAf (>60 ml/min/1.73 sqM) Glucose (74-99) mg/dL Plasma Lactic Acid Tanner (0.7-2.0) mmol/L Calcium (8.4-10.2) mg/dL Total Bilirubin (0.2-1.3) mg/dL AST (14-36) U/L ALT (4-34) U/L Alkaline Phosphatase (38-126) U/L Total Protein (6.3-8.2) g/dL Albumin (3.5-5.0) g/dL Lipase (23-300) U/L Urine Color Colorless Urine Appearance Clear (Clear) Urine pH 6.5 (5.0-8.0) Ur Specific [place] 1.003 (1.001-1.035) Urine Protein Negative (Negative) Urine Glucose (UA) Negative (Negative) Urine Ketones Negative (Negative) Urine Blood Negative (Negative) Urine Nitrite Negative (Negative) Urine Bilirubin Negative (Negative) Urine Urobilinogen <2.0 (<2.0) mg/dL Ur Leukocyte Esterase Negative (Negative) C. difficile (EIA) Intrp Negative (Negative) 02/21/24 02/21/24 Range/Units 12:55 12:55 WBC (3.8-10.6) k/uL RBC (3.80-5.40) m/uL Hgb (11.4-16.0) gm/dL Hct (34.0-46.0) % MCV (80.0-100.0) fL MCH (25.0-35.0) pg MCHC (31.0-37.0) g/dL RDW (11.5-15.5) % Plt Count (150-450) k/uL MPV Neutrophils % % Lymphocytes % % Monocytes % % Eosinophils % % Basophils % % Neutrophils # (1.3-7.7) k/uL Lymphocytes # (1.0-4.8) k/uL Monocytes # (0-1.0) k/uL Eosinophils # (0-0.7) k/uL Basophils # (0-0.2) k/uL Sodium 140 (137-145) mmol/L Potassium 4.6 (3.5-5.1) mmol/L Chloride 104 (98-107) mmol/L Carbon Dioxide 25 (22-30) mmol/L Anion Gap 11 mmol/L BUN 20 H (7-17) mg/dL Creatinine 0.85 (0.52-1.04) mg/dL Est GFR (CKD-EPI)AfAm 78 (>60 ml/min/1.73 sqM) Est GFR (CKD-EPI)NonAf 68 (>60 ml/min/1.73 sqM) Glucose 101 H (74-99) mg/dL Plasma Lactic Acid [place]anner 0.6 L (0.7-2.0) mmol/L Calcium 9.7 (8.4-10.2) mg/dL Total Bilirubin 1.0 (0.2-1.3) mg/dL AST 25 (14-36) U/L ALT 20 (4-34) U/L Alkaline Phosphatase 43 (38-126) U/L Total Protein 6.9 (6.3-8.2) g/dL Albumin 4.8 (3.5-5.0) g/dL Lipase 115 (23-300) U/L Urine Color Urine Appearance (Clear) Urine pH (5.0-8.0) Ur Specific [place] (1.001-1.035) Urine Protein (Negative) Urine Glucose (UA) (Negative) Urine Ketones (Negative) Urine Blood (Negative) Urine Nitrite (Negative) Urine Bilirubin (Negative) Urine Urobilinogen (<2.0) mg/dL Ur Leukocyte Esterase (Negative) C. difficile (EIA) Intrp (Negative) Disposition Clinical Impression: Diarrhea Disposition: HOME SELF-CARE Condition: Stable Instructions (If sedation given, give patient instructions): Acute Diarrhea (ED) Additional Instructions: Please contact your PCP regarding your stool study results. Please return to the Emergency Department if symptoms worsen or any other concerns. Prescriptions: Albendazole [Albenza] 400 mg PO BID #40 tablet metroNIDAZOLE [Flagyl] 250 mg PO TID #21 tab Is patient prescribed a controlled substance at d/c from ED?: No Referrals: [facility],Clinic [Primary Care Provider] - 1-2 days Time of Disposition: 16:25
[2024-02-21 13:05] LABS: Basophils # (A) 0.1 k/uL (0-0.2); Basophils % (A) 1 %; Eosinophils # (A) 0.2 k/uL (0-0.7); Eosinophils % (A) 3 %; HCT 43.6 % (34.0-46.0); HGB 14.2 gm/dL (11.4-16.0); Lymphocytes # (A) 1.7 k/uL (1.0-4.8); Lymphocytes % (A) 22 %; MCH 29.1 pg (25.0-35.0); MCHC 32.5 g/dL (31.0-37.0); MCV 89.7 fL (80.0-100.0); Mean Platelet Volume 6.6; Monocytes # (A) 0.5 k/uL (0-1.0); Monocytes % (A) 6 %; Neutrophils % (A) 66 %; Platelet Count 312 k/uL (150-450); RBC 4.87 m/uL (3.80-5.40); RDW 13.5 % (11.5-15.5); WBC 7.6 k/uL (3.8-10.6)
[2024-02-21] MEDS: SODIUM CHLORIDE 0.9% 1,000 ML IV STA (13:07)
[2024-02-21 13:18] LABS: ALT 20 U/L (4-34); AST 25 U/L (14-36); African American GFR (CKD) 78 (>60 ml/min/1.73 sqM); Albumin 4.8 g/dL (3.5-5.0); Alkaline Phosphatase 43 U/L (38-126); Anion Gap 11 mmol/L; Blood Urea Nitrogen 20 mg/dL (7-17); Calcium 9.7 mg/dL (8.4-10.2); Carbon Dioxide 25 mmol/L (22-30); Chloride 104 mmol/L (98-107); Glucose 101 mg/dL (74-99); Lipase 115 U/L (23-300); Non-African American GFR(CKD) 68 (>60 ml/min/1.73 sqM); Potassium 4.6 mmol/L (3.5-5.1); Sodium 140 mmol/L (137-145); Total Protein 6.9 g/dL (6.3-8.2)
[2024-02-21 14:00] LABS: Appearance,Urine Clear (Clear); Bilirubin,Urine Negative (Negative); Blood,Urine Negative (Negative); Color,Urine Colorless; Glucose,Urine (UA) Negative (Negative); Ketones,Urine Negative (Negative); Leukocyte Esterase,Urine Negative (Negative); Nitrite,Urine Negative (Negative); PH, Urine 6.5 (5.0-8.0); Protein,Urine Negative (Negative); Specific Gravity,Urine 1.003 (1.001-1.035); Urobilinogen,Urine <2.0 mg/dL (<2.0)
== END 2024-02-21 16:42 | disposition home or self-care (01) ==
LOC: EC 11:16
DX: R19.7 Diarrhea, unspecified (principal)
CPT/HCPCS: 36415; 80053; 81003; 83605; 83690; 85025; 87324; 96360; 99284